=== PATIENT | female | born 1940 | race Asian ===

== ENCOUNTER 2018-02-24 13:27 | Inpatient (IN) | payer MEDICARE, OTHER ==
[~2018-02-24] VITALS: Ht 152.4 cm; Wt 55.8 kg
[2018-02-24 14:14] LABS: BASOPHILS % (AUTO) 0.6 % (0.0-2.0); EOSINOPHILS # (AUTO) 0.1 K/uL (0.0-0.7); HEMATOCRIT 46.4 % (31.2-41.9); HEMOGLOBIN 16.3 g/dL (10.9-14.3); LYMPHOCYTES # (AUTO) 1.7 K/uL (20.0-40.0); LYMPHOCYTES % (AUTO) 23.4 % (20.5-51.5); MEAN CORPUSCULAR HEMOGLOBIN 34.4 uug (24.7-32.8); MEAN CORPUSCULAR HGB CONC 35 g/dL (32.3-35.6); MEAN CORPUSCULAR VOLUME 97.8 fL (75.5-95.3); MONOCYTES # (AUTO) 0.7 K/uL (2.0-10.0); MONOCYTES % (AUTO) 9.4 % (0.0-11.0); NEUTROPHILS # (AUTO) 4.6 K/uL (1.8-8.9); NEUTROPHILS % (AUTO) 64.6 % (38.5-71.5); PLATELET COUNT (AUTO) 228 K/uL (179-408); RED BLOOD CELL COUNT(AUTO) 4.74 MIL/uL (3.63-4.92); WHITE BLOOD COUNT (AUTO) 7.2 K/uL (3.8-11.8)
[2018-02-24 14:17] LABS: CARBON DIOXIDE 25 mmol/L (21-32); CHLORIDE 105 mmol/L (98-107); CREATININE 0.8 mg/dL (0.6-1.3); GLUCOSE 106 mg/dL (74-106); POTASSIUM 4.1 mmol/L (3.5-5.1); UREA NITROGEN, BLOOD 9 mg/dL (7-18)
[2018-02-24 14:23] LABS: ACETAMINOPHEN < 2.0 ug/mL (10-30); ALANINE AMINOTRANSFERASE 37 U/L (14-59); ALKALINE PHOSPHATASE 70 U/L (50-136); ASPARTATE AMINOTRANSFERASE 25 U/L (15-37); BILIRUBIN,DIRECT 0.2 mg/dL (0.0-0.2); BILIRUBIN,TOTAL 0.7 mg/dL (0.2-1.0); TOTAL PROTEIN, SERUM 7.6 g/dL (6.4-8.2)
[2018-02-24 14:30] LABS: THYROID STIMULATING HORMONE 0.552 mIU/mL (0.358-3.740)
[2018-02-24 14:38] LABS: ETHANOL < 3 MG/DL (0-0)
[2018-02-24] MEDS ORDERED: MELA3TAB PO (14:53)
[2018-02-24] MEDS ORDERED: DONE10TA11 PO (14:53)
[2018-02-24] MEDS ORDERED: MULT-213 PO (14:53)
[2018-02-24] MEDS ORDERED: MAGN400O6 PO (14:53)
[2018-02-24] MEDS ORDERED: DOCU-141 PO (14:53)
[2018-02-24] MEDS ORDERED: OXYB5TAB29 PO (14:53)
[2018-02-24] MEDS ORDERED: ACET325T53 PO (14:53)
[2018-02-24] MEDS ORDERED: SIMV10TA2 PO (14:53)
[2018-02-24] MEDS ORDERED: PANT40TA2 PO (14:53)
[2018-02-24] MEDS ORDERED: AMLO2.5T2 PO (14:53)
[2018-02-24] MEDS ORDERED: METO-356 PO (14:53)
--- NOTE | 2018-02-24 15:14 | NUR ---
PT MEDICALLY CLEARED. CALLED EILEEN VELA FOR PSYCH EVAL.
--- NOTE | 2018-02-24 16:52 | NUR ---
HOSPITAL DINNER TRAY PROVIDED FOR PT.
--- NOTE | 2018-02-24 17:50 | NUR ---
EILEEN VELA AT BEDSIDE FOR PSYCH EVAL. NIESHA CURTISN, AT BEDSIDE TO TRANSLATE FROM [facility]
--- NOTE | 2018-02-24 19:17 | NUR ---
Sitter (ITZ) at bedside. Pt is resting comfortably in bed. Pending admission.
--- NOTE | 2018-02-24 19:40 | NUR ---
Pt. admitted to [address] [place] [address], under care of Dr. Machuca/Satish. Belongs List completed. MRSA swab done.
--- NOTE | 2018-02-24 19:41 | NUR ---
Report given to HARRY Akers
--- NOTE | 2018-02-24 20:02 | NUR ---
ADMITTED PATIENT GRECIA TOLENTINO OVERFLOW, 5150 HOLD UNDER THE CARE OF Jacques POLK. BODY CHECK DONE, PATIENT HAS NO BELONGINGS, NO HEARING AIDE, NO DENTURES, NO CONTRABAND. SKIN INTACT. ON 1;1 SITTER FOR SAFETY.
[2018-02-24] MEDS ORDERED: ACETAMINOPHEN 325 MG TABLET PO PRN ×3 (20:15→20:30)
[2018-02-24] MEDS ORDERED: LORAZEPAM 0.5 MG TABLET PO PRN (20:30)
[2018-02-24] MEDS ORDERED: MAGNESIUM HYDROXIDE 30 ML LIQUID UDC PO PRN (20:30)
[2018-02-24] MEDS ORDERED: MAG HYDROX/AL HYDROX/SIMETH 30 ML LIQUID UDC PO PRN (20:30)
[2018-02-24 20:42] VITALS: BP 149/70
[2018-02-24] MEDS ORDERED: DONEPEZIL 10 MG TABLET PO SCH (21:00)
[2018-02-24] MEDS: SIMVASTATIN 10 MG TABLET PO SCH (21:20)
[2018-02-24] MEDS: DOCUSATE SODIUM 100 MG CAPSULE PO SCH (21:20)
[2018-02-25 04:00] VITALS: BP 143/92
--- NOTE | 2018-02-25 05:56 | NUR ---
PATIENT SLEPT FOR 5 HOURS, COOPERATIVE WITH CARE AT THIS TIME. PATIENT UNABLE TO ANSWER SIMPLE QUESTIONS, KEPT TALKING ABOUT SINGING THE NATIONAL ANTHEM. CONT ON 1;1 SITTER FOR SAFETY. CONT TO MONITOR.
[2018-02-25 07:20] VITALS: BP 132/75
[2018-02-25] MEDS: OXYBUTYNIN XL 5 MG TABSR PO SCH (08:01)
[2018-02-25] MEDS: MULTIVIT, IRON, MIN NO. 8, FA TABLET PO SCH (08:01)
[2018-02-25] MEDS: AMLODIPINE 2.5 MG TABLET PO SCH (08:01)
[2018-02-25] MEDS: METOPROLOL SUCCINATE XL 25 MG TAB.SR.24H PO SCH (08:01)
[2018-02-25] MEDS: PANTOPRAZOLE SODIUM 40 MG TABLET.DR PO SCH (08:01)
[2018-02-25] MEDS ORDERED: PANTOPRAZOLE SODIUM 40 MG TABLET.DR PO SCH (09:00)
[2018-02-25] MEDS ORDERED: Medication Not On Formulary EA (Multivitamins W-Minerals (Multivitamin With Minerals) 1 PO SCH (09:00)
[2018-02-25 15:30] VITALS: BP 145/73
[2018-02-25 19:47] VITALS: BP 141/69
[2018-02-25] MEDS ORDERED: OLANZAPINE 2.5 MG TABLET PO SCH (20:00)
[2018-02-25] MEDS: SIMVASTATIN 10 MG TABLET PO SCH (20:00)
[2018-02-25] MEDS: DOCUSATE SODIUM 100 MG CAPSULE PO SCH (20:00)
[2018-02-25] MEDS: TEMAZEPAM 7.5 MG CAPSULE PO PRN (21:23)
[2018-02-26 04:00] VITALS: BP 139/88
--- NOTE | 2018-02-26 06:14 | NUR ---
PATIENT SLEPT FOR 6 HRS AND 45 MINUTES, NO COMPLAIN OF PAIN AT THIS TIME. CONT ON 1;1 SITTER FOR SAFETY.
[2018-02-26] MEDS: PANTOPRAZOLE SODIUM 40 MG TABLET.DR PO SCH (06:27)
--- NOTE | 2018-02-26 07:45 | NUR ---
Patient awake, in bed, not in any form of acute distress. She denies any pain or discomfort at this time. 1:1 sitter at bedside.
[2018-02-26 08:08] VITALS: BP 147/82
[2018-02-26] MEDS: MULTIVIT, IRON, MIN NO. 8, FA TABLET PO SCH (08:57)
[2018-02-26] MEDS: AMLODIPINE 2.5 MG TABLET PO SCH (08:58)
[2018-02-26] MEDS: OXYBUTYNIN XL 5 MG TABSR PO SCH (08:58)
[2018-02-26] MEDS ORDERED: DIVALPROEX SPRINKLE 125 MG CAP.SPRINK PO SCH (09:00)
[2018-02-26] MEDS: METOPROLOL SUCCINATE XL 25 MG TAB.SR.24H PO SCH (09:08)
--- NOTE | 2018-02-26 13:47 | NUR ---
Initial Discharge Instructions: Patient currently resides at [facility] [[address] [place] [address]; ]. Patient is aware that she is a resident at this facility and would like to return there upon discharge. Spoke with patient's son, Jayesh Bender ([phone]) who wishes patient to return to [facility] as well. Spoke with Pari at the facility who states the patient can return when ready for discharge. SW will continue to collaborate with pt, family, and MD regarding most appropriate discharge plans for this patient. SW will form a safe and proper discharge.
--- NOTE | 2018-02-26 13:50 | NUR ---
Report given to nurse Gabriela.
--- NOTE | 2018-02-26 14:45 | NUR ---
Gps/Mobile Marketing Manager- Received patient from 2nd floor via wheel chair. Alert oriented x1, speech confused and incoherent. Anxious, difficulty following simple directions, speaks tagalog. Noted patient is ambulatory gait is steady, contact redirections needed for her safety. In no signs of any distress.Allowed staff to take her blood pressure.Reoriented to unit settings.
[2018-02-26] MEDS: DIVALPROEX SPRINKLE 125 MG CAP.SPRINK PO SCH (17:31)
--- NOTE | 2018-02-26 17:54 | NUR ---
Gps/Alarm Technician- Family (daughter Hallie hendrickson pt's Bill) in to visit, per family does not recognized them. Offered to eat dinner, on took few bites where med. was administered with . Fluids offered and encouraged. Noted patient gets agitated when being encouraged during her meal.
[2018-02-26] MEDS: SIMVASTATIN 10 MG TABLET PO SCH (20:48)
[2018-02-26] MEDS: DOCUSATE SODIUM 100 MG CAPSULE PO SCH (20:48)
[2018-02-26] MEDS: OLANZAPINE 2.5 MG TABLET PO SCH (20:48)
[2018-02-26 21:33] VITALS: BP 131/75
[2018-02-26] MEDS: TEMAZEPAM 7.5 MG CAPSULE PO PRN (21:42)
[2018-02-27] MEDS: PANTOPRAZOLE SODIUM 40 MG TABLET.DR PO SCH (06:56)
[2018-02-27 07:30] VITALS: BP 137/73
[2018-02-27] MEDS: MULTIVIT, IRON, MIN NO. 8, FA TABLET PO SCH (08:31)
[2018-02-27] MEDS: OXYBUTYNIN XL 5 MG TABSR PO SCH (08:32)
[2018-02-27] MEDS: AMLODIPINE 2.5 MG TABLET PO SCH (08:32)
[2018-02-27] MEDS: DIVALPROEX SPRINKLE 125 MG CAP.SPRINK PO SCH ×3 (08:32→16:34)
[2018-02-27] MEDS: METOPROLOL SUCCINATE XL 25 MG TAB.SR.24H PO SCH (08:32)
--- NOTE | 2018-02-27 08:52 | NUR ---
Gps/Crumb Packer- Patiient confused, incoherent speech, not initiating to feed self, poor oral intake, kept re offering milk and juices, h20, takes sips, esily gets distracted. Likes to sing [place] National anthem. Poor safety judgement, continue to monitor safety, Routine meds was administered crushed w/ pudding, given in increments.
[2018-02-27 16:00] VITALS: BP 121/46
[2018-02-27 20:00] VITALS: BP 121/54
[2018-02-27] MEDS: DOCUSATE SODIUM 100 MG CAPSULE PO SCH (20:54)
[2018-02-27] MEDS: OLANZAPINE 2.5 MG TABLET PO SCH (20:54)
[2018-02-27] MEDS: SIMVASTATIN 10 MG TABLET PO SCH (20:54)
--- NOTE | 2018-02-28 04:10 | NUR ---
Patient received in bed, sleeping. Did wake her up for medication. seemed confused with incoherent speaking. All due medications given as ordered, well tolerated.
[2018-02-28] MEDS: PANTOPRAZOLE SODIUM 40 MG TABLET.DR PO SCH (06:32)
[2018-02-28 07:30] VITALS: BP 139/79
[2018-02-28] MEDS: DIVALPROEX SPRINKLE 125 MG CAP.SPRINK PO SCH ×3 (09:07→17:42)
[2018-02-28] MEDS: METOPROLOL SUCCINATE XL 25 MG TAB.SR.24H PO SCH (09:08)
[2018-02-28] MEDS: OXYBUTYNIN XL 5 MG TABSR PO SCH (09:08)
[2018-02-28] MEDS: MULTIVIT, IRON, MIN NO. 8, FA TABLET PO SCH (09:09)
[2018-02-28] MEDS: AMLODIPINE 2.5 MG TABLET PO SCH (09:09)
--- NOTE | 2018-02-28 12:54 | NUR ---
Gps/Shoe Parts Caser- Remains confused, cursing staff in [facility], assisted with meals, not initiating to feed self. Routine meds. administered w/ apple sauce. Toileted as needed.
[2018-02-28 16:00] VITALS: BP 142/61
[2018-02-28] MEDS: OLANZAPINE 2.5 MG TABLET PO SCH (20:24)
[2018-02-28] MEDS: SIMVASTATIN 10 MG TABLET PO SCH (20:24)
[2018-02-28] MEDS: DOCUSATE SODIUM 100 MG CAPSULE PO SCH (20:24)
[2018-02-28 20:38] VITALS: BP 170/74
--- NOTE | 2018-03-01 06:06 | NUR ---
GPS: REMAIN CALM AND COOPERATIVE WITH MEDICATIONS AND CARE. SLEPT 8 HRS THROUGH THE NIGHT. RESTING IN BED COMFORTABLY. NO AGITATION NOTED.
[2018-03-01] MEDS: PANTOPRAZOLE SODIUM 40 MG TABLET.DR PO SCH (06:12)
[2018-03-01 08:30] VITALS: BP 139/81
[2018-03-01] MEDS: DIVALPROEX SPRINKLE 125 MG CAP.SPRINK PO SCH ×2 (10:07→17:00)
[2018-03-01] MEDS: MULTIVIT, IRON, MIN NO. 8, FA TABLET PO SCH (10:07)
[2018-03-01] MEDS: METOPROLOL SUCCINATE XL 25 MG TAB.SR.24H PO SCH (10:08)
[2018-03-01] MEDS: OXYBUTYNIN XL 5 MG TABSR PO SCH (10:09)
[2018-03-01] MEDS: AMLODIPINE 2.5 MG TABLET PO SCH (10:09)
[2018-03-01] MEDS: OLANZAPINE 2.5 MG TABLET PO SCH ×2 (14:39→20:10)
--- NOTE | 2018-03-01 15:15 | NUR ---
Firearms Report: FREDO completed and submitted [employer] Firearms Report for 5250 GD certification.
[2018-03-01 15:45] VITALS: BP 138/76
[2018-03-01 20:25] VITALS: BP 135/83
[2018-03-01] MEDS: SIMVASTATIN 10 MG TABLET PO SCH (21:27)
[2018-03-01] MEDS: DOCUSATE SODIUM 100 MG CAPSULE PO SCH (21:27)
--- NOTE | 2018-03-01 23:59 | NUR ---
Recieved report from am Rn. lying in bed speaking Frank medication compliant for hs meds denies of any distress. Resting in bed comfortably.
[2018-03-02] MEDS: PANTOPRAZOLE SODIUM 40 MG TABLET.DR PO SCH (06:28)
--- NOTE | 2018-03-02 06:50 | NUR ---
Recieved her protonix this am slept 7.3 hr s during the shift. Lying in bed eyes closed rep even and unlab.
[2018-03-02 07:30] VITALS: BP 92/65
[2018-03-02] MEDS: MULTIVIT, IRON, MIN NO. 8, FA TABLET PO SCH (08:31)
[2018-03-02] MEDS: DIVALPROEX SPRINKLE 125 MG CAP.SPRINK PO SCH ×2 (08:31→17:28)
[2018-03-02] MEDS: METOPROLOL SUCCINATE XL 25 MG TAB.SR.24H PO SCH (08:32)
[2018-03-02] MEDS: AMLODIPINE 2.5 MG TABLET PO SCH (08:34)
[2018-03-02] MEDS: OXYBUTYNIN XL 5 MG TABSR PO SCH (08:34)
[2018-03-02] MEDS: OLANZAPINE 2.5 MG TABLET PO SCH ×2 (08:38→20:04)
[2018-03-02 16:00] VITALS: BP 101/59
[2018-03-02 20:00] VITALS: BP 148/76
[2018-03-02] MEDS: SIMVASTATIN 10 MG TABLET PO SCH (20:04)
[2018-03-02] MEDS: DOCUSATE SODIUM 100 MG CAPSULE PO SCH (20:04)
[2018-03-03] MEDS: PANTOPRAZOLE SODIUM 40 MG TABLET.DR PO SCH (06:01)
--- NOTE | 2018-03-03 06:42 | NUR ---
Received Pt sleeping in bed, arouses easily. A+Ox1, Pt is confused and disoriented, makes non-sensical and irrelevant statements, sings the National Veyo at times. Compliant with medications with some prompting. Verbally abusive to select staff when care is rendered. Showered this AM with staff assistance. VS stable, denies pain, in no acute physical distress.
[2018-03-03 07:30] VITALS: BP 167/87
[2018-03-03] MEDS: OLANZAPINE 2.5 MG TABLET PO SCH ×3 (08:10→20:25)
[2018-03-03] MEDS: DIVALPROEX SPRINKLE 125 MG CAP.SPRINK PO SCH ×3 (08:10→17:27)
[2018-03-03] MEDS: MULTIVIT, IRON, MIN NO. 8, FA TABLET PO SCH (08:10)
[2018-03-03] MEDS: OXYBUTYNIN XL 5 MG TABSR PO SCH (08:12)
[2018-03-03] MEDS: METOPROLOL SUCCINATE XL 25 MG TAB.SR.24H PO SCH (08:16)
[2018-03-03] MEDS: AMLODIPINE 2.5 MG TABLET PO SCH (08:17)
--- NOTE | 2018-03-03 13:00 | NUR ---
GROUP NOTE: SW offered patient to attend group today; however, patient was asleep and audibly snoring. Patient was unable to be awoken. SW will continue to encourage pt to attend group during scheduled time in the future.
--- NOTE | 2018-03-03 14:03 | NUR ---
Spoke with nurse, Pt was having diarrhea, RN stopped Ensure and stated diarrhea is better now, requested DC Ensure ONS. RN also requested to have double protein portion, pt appears to have mild fat and muscle loss, will provide double protein portion at meals.
[2018-03-03 16:11] VITALS: BP 127/72
--- NOTE | 2018-03-03 19:50 | NUR ---
RECEIVED PATIENT IN HER ROOM IN BED. SHE IS NOTED AWAKE A/O X 1. CALM AND PLEASANT UPON APPROACHED. V/S STABLE. NO AGGRESSIVE/COMBATIVE BX NOTED OR REPORTED AT THIS TIME. BRIGHT AFFECT, WITHDRAWN BX NOTED. PT WAS REASSURED FOR HER SAFETY. WILL CONTINUE TO MONITOR.
[2018-03-03 20:10] VITALS: BP 144/72
[2018-03-03] MEDS: SIMVASTATIN 10 MG TABLET PO SCH (20:24)
[2018-03-03] MEDS: DOCUSATE SODIUM 100 MG CAPSULE PO SCH (20:25)
[2018-03-04] MEDS: PANTOPRAZOLE SODIUM 40 MG TABLET.DR PO SCH (06:56)
--- NOTE | 2018-03-04 07:26 | NUR ---
PATIENT SLEPT FOR APPROX 7.00 HRS THROUGHOUT THE NIGHT. SHE REFUSED PROTONIX THIS AM. NO AGGRESSIVE/COMBATIVE BX NOTED OR REPORTED DURING THE SHIFT
[2018-03-04 07:30] VITALS: BP 137/76
[2018-03-04] MEDS: MULTIVIT, IRON, MIN NO. 8, FA TABLET PO SCH (08:28)
[2018-03-04] MEDS: OLANZAPINE 2.5 MG TABLET PO SCH ×3 (08:28→20:25)
[2018-03-04] MEDS: DIVALPROEX SPRINKLE 125 MG CAP.SPRINK PO SCH ×3 (08:28→16:51)
[2018-03-04] MEDS: AMLODIPINE 2.5 MG TABLET PO SCH (08:29)
[2018-03-04] MEDS: OXYBUTYNIN XL 5 MG TABSR PO SCH (08:29)
[2018-03-04] MEDS: METOPROLOL SUCCINATE XL 25 MG TAB.SR.24H PO SCH (08:30)
[2018-03-04 16:04] VITALS: BP 132/70
[2018-03-04] MEDS: DOCUSATE SODIUM 100 MG CAPSULE PO SCH (20:25)
[2018-03-04] MEDS: SIMVASTATIN 10 MG TABLET PO SCH (20:25)
[2018-03-04 20:39] VITALS: BP 124/72
[2018-03-05] MEDS: PANTOPRAZOLE SODIUM 40 MG TABLET.DR PO SCH (06:39)
[2018-03-05 07:30] VITALS: BP 141/70
--- NOTE | 2018-03-05 08:32 | NUR ---
Discharge Note: Patient will be discharged to [facility] [[address] [place] [address]; ] via ambulance at 1:00pm. Please arrange an ambulance for this patient. Spoke with Pari at the facility who states they are ready to accept the patient back today. Spoke with patients son, Jayesh ([phone]) who is aware and agreeable with discharge plan. Patient is alert and oriented x1 and is cooperative. Patient will follow-up at the facility with Dr. Michelle (Oxidized Finish Plater) and Dr. Machuca (Psychiatrist).
[2018-03-05] MEDS: DIVALPROEX SPRINKLE 125 MG CAP.SPRINK PO SCH ×2 (09:03→13:30)
[2018-03-05] MEDS: MULTIVIT, IRON, MIN NO. 8, FA TABLET PO SCH (09:03)
[2018-03-05] MEDS: OLANZAPINE 2.5 MG TABLET PO SCH ×2 (09:03→13:30)
[2018-03-05] MEDS: OXYBUTYNIN XL 5 MG TABSR PO SCH (09:05)
[2018-03-05] MEDS: AMLODIPINE 2.5 MG TABLET PO SCH (09:05)
[2018-03-05 09:06] VITALS: BP 141/70
[2018-03-05] MEDS: METOPROLOL SUCCINATE XL 25 MG TAB.SR.24H PO SCH (09:06)
--- NOTE | 2018-03-05 12:02 | NUR ---
Gps/Driver Operator- Called Ronny Argueta [facility] , report was given to Nurse Little, estimated clam picker time at 1345 pm. via ambulance.
--- NOTE | 2018-03-05 12:25 | NUR ---
DC Note: Patient will be discharged back to her home [[address] [place] [address]; [phone]] where she lives alone. Transportation will be provided taxi at 2:00pm. Taxi voucher has been provided to patient's CERTIFIED SURGICAL ASSISTANT, Gabriela. Patient is alert and oriented x3, denies SI/HI, and is able to plan for self-care. Per conversation with patient, she will use a grocery delivery service which she has uses in the past. Patient was also provided with information about food morales in her area. hand bindery assembly worker is arranging home health for medication management for patient and is currently awaiting authorization from [facility] [[phone]; Contact: Macie]. [facility], but it with the New Year and patient is now an HMO managed Medicare through [employer]. Per Patient, she is aware of this as she wanted to save money so switched to an HMO. Patient is aware and agreeable with discharge plan. Patient currently sees Dr. Donya Murphy [[address] [place] [address]; ] as her PCP. hand bindery assembly worker awaiting follow-up appointments for psychiatry and psychotherapy from [facility] and will follow-up with times. Continuing care packets will be sent hand bindery assembly worker has sent continuing care packet to MD offices. SW will follow-up with patient when her outpatient Psych appointments have been made and when Home Health has been authorized. hand bindery assembly worker has provided patient with mental health resources including [facility] , [facility] , and the National Suicide Prevention Lifeline . Addendum: 03/05/18 at 1236 by BRYNN HUNTER Documented on wrong patient. Disregard.
--- NOTE | 2018-03-05 13:59 | NUR ---
Gps/Relay Shop Tester- Discharged to [facility] via ambulance, patient in no signs of any distress, all belongings return back to patient. Report was given to Anabel (Nurse) Discharged via ambulance. Family was notified of the dc. plan as per FREDO.
== END 2018-03-05 14:04 | DRG 885 ==
LOC: ER 13:27 → GPSOV 19:50 → GPS 02-26 12:10
PROVIDERS: ADMIT Psychiatry & Neurology Psychosomatic Medicine; ATTEND Hospitalist
DX: F25.0 Schizoaffective disorder, bipolar type (principal); F02.81 Dementia in other diseases classified elsewhere, unspecified severity, with behavioral disturbance; E44.1 Mild protein-calorie malnutrition; G30.9 Alzheimer's disease, unspecified; H52.209 Unspecified astigmatism, unspecified eye; I25.10 Atherosclerotic heart disease of native coronary artery without angina pectoris; N32.81 Overactive bladder; H52.4 Presbyopia; K21.9 Gastro-esophageal reflux disease without esophagitis; H35.30 Unspecified macular degeneration; Z68.24 Body mass index [BMI] 24.0-24.9, adult; M62.81 Muscle weakness (generalized); E78.5 Hyperlipidemia, unspecified; I11.9 Hypertensive heart disease without heart failure; Z95.0 Presence of cardiac pacemaker
CPT/HCPCS: 36415; 70030-TC; 71045; 80164; 84443; 85025; 85730; A4663; G0480; G0480-TC